=== PATIENT | male | born 1980 | race African-American/Black ===

== ENCOUNTER 2025-01-01 10:44 | Emergency (ER) | payer BC, MEDICAID ==
[2025-01-01] MEDS: Diphtheria,Pertussis(Acell),Tetanus Vaccine 0.5 ML Syringe IM ONE (12:10)
[2025-01-01] MEDS: Ketorolac 30 MG/ML SDV IM ONE (12:10)
[2025-01-01 12:45] VITALS: BP 170/127; PULSE 75
== END 2025-01-01 12:30 | disposition home or self-care (01) ==
LOC: MW.ED 10:44
DX: S01.01XA Laceration without foreign body of scalp, initial encounter (principal); Z75.3 Unavailability and inaccessibility of health-care facilities; W22.8XXA Striking against or struck by other objects, initial encounter; Z23 Encounter for immunization
CPT/HCPCS: 12002; 90471; 90715; 96372; 99283; J1885